=== PATIENT | male | born 1970 | race Two or more races ===

== ENCOUNTER 2017-08-15 22:16 | Emergency (ER) | payer OTHER ==
[~2017-08-15] VITALS: Ht 162.6 cm; Wt 75.7 kg
[~2017-08-15 22:16] MED LIST: BACLOFEN10 MG; COZAAR25 MG; COZAAR25 MG PO; JANUMET 50-1,1 UDTAB PO; JANUVIA50 MG; KOMBIGLYZE XR1 EAC1; LIPITOR20 MG; NABUMETONE500 MG PO; PERCOCET 5/3251 TAB PO; RYBIX ODT50 MG; TRICOR145 MG; [UNRECOGNIZED DRUG - OTHER]; [UNRECOGNIZED DRUG - OTHER] PO
[2017-08-15] MEDS ORDERED: PNEU16DI2 (23:12)
[2017-08-16] MEDS ORDERED: METOCLOPRAMIDE10 MG PO (05:55)
== END 2017-08-16 05:54 | disposition home or self-care (01) ==
LOC: ER 22:16
DX: R42 Dizziness and giddiness (principal); M54.2 Cervicalgia

== ENCOUNTER 2018-01-02 07:35 | Outpatient (CLI) | payer OTHER ==
[~2018-01-02 07:35] MED LIST changes: +METOCLOPRAMIDE10 MG PO; +PNEU16DI2
== END 2018-01-02 07:38 | disposition home or self-care (01) ==
LOC: TOM 07:35
DX: K76.0 Fatty (change of) liver, not elsewhere classified (principal); K57.30 Diverticulosis of large intestine without perforation or abscess without bleeding

== ENCOUNTER 2018-01-10 08:06 | Outpatient (CLI) | payer OTHER | END 2018-01-10 08:15 | disposition home or self-care, planned readmission (81) | LOC: TOM 08:06 | DX: K86.89 Other specified diseases of pancreas (principal); K86.2 Cyst of pancreas; K70.0 Alcoholic fatty liver; R91.1 Solitary pulmonary nodule ==

== ENCOUNTER 2018-08-16 14:22 | Outpatient (CLI) | payer OTHER | END 2018-08-16 15:52 | disposition home or self-care (01) | LOC: MRI 14:22 | DX: M25.561 Pain in right knee (principal); R07.89 Other chest pain | CPT/HCPCS: 73718 ==

== ENCOUNTER → 2019-04-19 | Outpatient (CLI) | payer OTHER | END | disposition home or self-care (01) | LOC: RAD 10:50 | DX: M79.642 Pain in left hand (principal); M79.645 Pain in left finger(s); E11.9 Type 2 diabetes mellitus without complications ==

== ENCOUNTER 2020-09-11 10:11 | Outpatient (CLI) | payer OTHER | END 2020-09-11 10:14 | disposition home or self-care (01) | LOC: NUCLEAR 10:11 | PROVIDERS: ATTEND Internal Medicine Cardiovascular Disease | DX: I20.1 Angina pectoris with documented spasm (principal) ==

== ENCOUNTER 2020-12-11 10:29 | Outpatient (CLI) | payer OTHER | END 2020-12-11 10:38 | disposition home or self-care (01) | LOC: MRI 10:29 | PROVIDERS: ATTEND Orthopaedic Surgery | DX: M65.872 Other synovitis and tenosynovitis, left ankle and foot (principal) | CPT/HCPCS: 73721 ==

== ENCOUNTER 2023-05-12 10:37 | Outpatient (CLI) | payer OTHER | END 2023-05-12 10:59 | disposition home or self-care (01) | LOC: MRI 10:37 | PROVIDERS: ATTEND Specialist | DX: R51.9 Headache, unspecified (principal); R20.2 Paresthesia of skin | CPT/HCPCS: 70553 ==

== ENCOUNTER 2024-06-26 09:34 | Outpatient (CLI) | payer OTHER | END 2024-06-26 09:38 | disposition home or self-care (01) | LOC: MRI 09:34 | PROVIDERS: ATTEND Physical Medicine & Rehabilitation | DX: M50.20 Other cervical disc displacement, unspecified cervical region (principal) | CPT/HCPCS: 72141 ==